=== PATIENT | female | born 1960 | race Caucasian/White ===

== ENCOUNTER 2017-09-03 08:27 | Day surgery (SDC) | payer OTHER ==
[2017-09-03] MEDS ORDERED: LIDOCAINE 2% (SDV) 5 ML INJ (09:14)
[2017-09-03] MEDS ORDERED: PROPOFOL 60 ML (09:14)
== END 2017-09-03 12:29 | disposition home or self-care (01) ==
LOC: GIL 08:27
DX: Z12.11 Encounter for screening for malignant neoplasm of colon (principal); K44.9 Diaphragmatic hernia without obstruction or gangrene; K21.9 Gastro-esophageal reflux disease without esophagitis; K29.70 Gastritis, unspecified, without bleeding; K57.90 Diverticulosis of intestine, part unspecified, without perforation or abscess without bleeding; K64.8 Other hemorrhoids; D12.6 Benign neoplasm of colon, unspecified; I10 Essential (primary) hypertension; E11.9 Type 2 diabetes mellitus without complications; J45.909 Unspecified asthma, uncomplicated; Z85.3 Personal history of malignant neoplasm of breast
CPT/HCPCS: 43239; 82962; 87081; 88305